=== PATIENT | male | born 1975 | race Caucasian/White ===

== ENCOUNTER 2024-10-07 05:34 | Day surgery (SDC) | payer MEDICAID ==
[2024-09-30 14:18] LABS: BASOPHILS # (AUTO) 0.1 X10'3 (0-0.2); BASOPHILS % (AUTO) 0.9 % (0-1); EOSINOPHILS # (AUTO) 0.2 X10'3 (0-0.9); EOSINOPHILS % (AUTO) 2.5 % (0-6); LYMPHOCYTES % (AUTO) 33.6 % (21-51); MEAN CORPUSCULAR HEMOGLOBIN 29.1 PG (27.0-31.0); MEAN CORPUSCULAR HGB CONC 34.2 g/dL (33.0-36.5); MEAN CORPUSCULAR VOLUME 85.1 FL (78-98); MEAN PLATELET VOLUME 8.6 FL (7.4-10.4); MONOCYTES # (AUTO) 0.6 X10'3 (0-0.9); MONOCYTES % (AUTO) 6.9 % (2-12); NEUTROPHILS % (AUTO) 56.1 % (42-75); PRE OP HEMOGLOBIN 15.7 g/dL (14.0-17.9); PRE OP PLATELET COUNT 293 X10'3 (140-440); PRE OP WHITE BLOOD COUNT 8.9 10'3 (4.8-10.8)
[2024-09-30 14:20] LABS: BILIRUBIN,URINE NEGATIVE (Neg); CLARITY,URINE CLEAR (Clear); COLOR,URINE YELLOW (Yellow); GLUCOSE, URINE NEGATIVE (Neg); KETONES,URINE NEGATIVE (Neg); LEUKOCYTE ESTERASE ,URINE NEGATIVE (Neg); NITRITES, URINE NEGATIVE (Neg); OCCULT BLOOD,URINE LARGE (Neg); PROTEIN,URINE NEGATIVE (Neg); UROBILINOGEN,URINE 0.2 E.U/dL (0.2-1.0)
[2024-09-30 14:28] LABS: UA COLLECTION TYPE CLN CATCH MIDSTREAM
[2024-09-30 14:31] LABS: WBC,URINE NONE SEEN /HPF (0-4)
[2024-09-30 14:32] LABS: BACTERIA,URINE NONE SEEN /HPF (Neg); SQUAMOUS EPITHELIAL CELL,UR NONE SEEN /LPF (FEW)
[2024-09-30 14:42] LABS: ALBUMIN 4.1 G/DL (3.4-5.0); ALBUMIN/GLOBULIN RATIO 1.1 (1.1-1.5); ALKALINE PHOSPHATASE 79 IU/L (46-116); BLOOD UREA NITROGEN 12 MG/DL (7-18); BUN/CREATININE RATIO 13.2 (10.0-20.0); CHLORIDE 105 MMOL/L (99-107); CREATININE 0.91 MG/DL (0.60-1.10); PRE OP ALT 27 U/L (30-65); PRE OP ANION GAP 6 (8-16); PRE OP AST 13 U/L (10-37); PRE OP BILIRUB, TOTAL 0.5 MG/DL (0.0-1.0); PRE OP GLUCOSE 92 MG/DL (70-104); PRE OP POTASSIUM 4.4 MMOL/L (3.4-5.1); PRE OP SODIUM 142 MMOL/L (135-145); TOTAL CARBON DIOXIDE 31.2 MMOL/L (24-32); eGFR 89 ML/MIN
[~2024-10-07] VITALS: Ht 172.7 cm; Wt 97.5 kg
[2024-10-07] VITALS (11 sets, daily range): BP systolic 117–154; BP diastolic 69–93; PULSE 64–88; RESP 13–19; TEMP 97.6; O2SAT 64–97
[~2024-10-07 05:34] MED LIST: ATOR-2 PO; LISI40TA13 PO; NIFE-72 PO; PANT20TA18 PO
[2024-10-07] MEDS: ceFAZolin 2gm in dextrose, iso 50 ML IV ONE (06:37)
[2024-10-07] MEDS: ringers solution, lacted 1,000 ML IV SCH (06:38)
[2024-10-07] MEDS: famotidine 20mg tablet PO ONE (06:38)
[2024-10-07] MEDS ORDERED: BUPIVAcaine 2.5mg/ml inj 50ml vial (contains preservative) ONE ×2 (06:50→09:20)
[2024-10-07] MEDS ORDERED: bacitracin 15gm ointment TP ONE (06:54)
[2024-10-07] MEDS ORDERED: ringers solution, lacted 1,000 ML IV SCH (07:10)
[2024-10-07] MEDS ORDERED: hydrALAZINE 20mg/ml inj. IV PRN (07:10)
[2024-10-07] MEDS ORDERED: ondansetron/PF 4mg/2ml inj IV PRN (07:10)
[2024-10-07] MEDS ORDERED: fentaNYL/PF 50MCG/1 ML 2ML syringe IV PRN ×2 (07:10)
[2024-10-07] MEDS ORDERED: labetalol 20mg/4ml (5mg/ml) syringe IV PRN (07:10)
[2024-10-07] MEDS ORDERED: morphine 2 MG/ML inj. syringe IV PRN (07:10)
[2024-10-07] MEDS ORDERED: fentaNYL/PF 50MCG/1 ML 2ML syringe ONE ×2 (07:15→09:54)
[2024-10-07] MEDS ORDERED: ondansetron/PF 4mg/2ml inj ONE (07:15)
[2024-10-07] MEDS ORDERED: rocuronium 10mg/ml inj IV ONE (07:15)
[2024-10-07] MEDS ORDERED: acetaminophen 1,000mg/100ml IV 0 ML IV ONE (07:15)
[2024-10-07] MEDS ORDERED: midazolam 1 mg/ML 2ml injection ONE (07:15)
[2024-10-07] MEDS ORDERED: LIDOcaine 2% (20mg/ml) 5ml vial ONE (07:16)
[2024-10-07] MEDS ORDERED: dexamethasone sod phosphate 4mg/ml inj. ONE (07:16)
[2024-10-07] MEDS ORDERED: propofol inj 20 ML IV ONE (07:16)
[2024-10-07] MEDS ORDERED: acetaminophen 1,000mg/100ml IV 100 ML IV ONE (07:18)
[2024-10-07] MEDS ORDERED: sevoflurane 250ml liquid IH ONE (07:40)
[2024-10-07] MEDS ORDERED: glycopyrrolate 0.2mg/ml inj ONE (07:56)
[2024-10-07] MEDS ORDERED: neostigmine methylsulfate 1 MG/ML 10ml vial ONE (07:56)
[2024-10-07] MEDS ORDERED: hydrALAZINE 20mg/ml inj. ONE ×2 (08:10→08:16)
[2024-10-07] MEDS ORDERED: labetalol 20mg/4ml (5mg/ml) syringe IV ONE (08:28)
[2024-10-07] MEDS ORDERED: BUPIVACAINE liposomal/PF 13.3 MG/ML 10mL vial IM ONE (09:21)
[2024-10-07] MEDS: BUPIVAcaine 0.25% w/Epi /PF 30ml vial IJ ONE (10:45)
[2024-10-07] MEDS: morphine 4 MG/ML inj SYRINge IV PRN (11:32)
== END 2024-10-07 12:10 | disposition home or self-care (01) ==
LOC: PAS 05:34
PROVIDERS: ATTEND Surgery
DX: Z30.2 Encounter for sterilization (principal); N43.3 Hydrocele, unspecified; N43.0 Encysted hydrocele; K42.9 Umbilical hernia without obstruction or gangrene; I10 Essential (primary) hypertension; E78.5 Hyperlipidemia, unspecified; K21.9 Gastro-esophageal reflux disease without esophagitis; G47.30 Sleep apnea, unspecified; F10.90 Alcohol use, unspecified, uncomplicated; Z87.891 Personal history of nicotine dependence; Z98.890 Other specified postprocedural states; Z79.82 Long term (current) use of aspirin; Z79.899 Other long term (current) drug therapy; G89.18 Other acute postprocedural pain
CPT/HCPCS: 36415; 49594; 55060; 55250; 64488; 80053; 81001; 82948; 85025; 93005; C1781; J0131; J0360; J0666; J0690; J1100; J2003; J2250; J2270; J2405; J2704; J2710; J3010; J3490; J7030; J7120; S0020; Z7506; Z7508; Z7512; A4215; A4618; A7000